=== PATIENT | male | born 1955 | race Native Hawaiian/Other Pacific Islander ===

== ENCOUNTER 2017-06-26 07:37 | Day surgery (SDC) | payer BC ==
[2017-06-26 08:22] LABS: PLATELET COUNT 295 K/uL (142-355)
[2017-06-26 08:31] LABS: POTASSIUM 4.4 mmol/L (3.6-5.2)
== END 2017-06-26 10:15 | disposition home or self-care (01) ==
LOC: OR 07:37
PROVIDERS: Student in an Organized Health Care Education/Training Program
PROC: 0DJD8ZZ Inspection of Lower Intestinal Tract, Via Natural or Artificial Opening Endoscopic (ICD-10-PCS; principal; 2017-06-26)
DX: K57.30 Diverticulosis of large intestine without perforation or abscess without bleeding (principal); K64.8 Other hemorrhoids; Z12.11 Encounter for screening for malignant neoplasm of colon
CPT/HCPCS: 80053; 85027; J2001; J2250; J2704; J3010